=== PATIENT | female | born 1985 | race Asian ===

== ENCOUNTER 2019-11-27 10:45 | Emergency (ER) | payer BC, OTHER ==
[2019-11-27 10:50] VITALS: BP 125/92; PULSE 100; TEMP 98.7; BMI 29.0
[2019-11-27] MEDS ORDERED: KETOROLAC TROMETHAMINE 60 MG/2 ML VIAL IM ONE (10:53)
[2019-11-27] MEDS ORDERED: KETOROLAC TROMETHAMINE 60 MG/2 ML VIAL ONE (11:00)
[2019-11-27] MEDS ORDERED: SODIUM CHLORIDE 1,000 ML IV STA (11:15)
[2019-11-27] MEDS ORDERED: METOCLOPRAMIDE HCL INJECTION 10 MG/2 ML VIAL IVPUSH ONE (11:15)
[2019-11-27] MEDS ORDERED: METOCLOPRAMIDE HCL INJECTION 10 MG/2 ML VIAL ONE (11:18)
== END 2019-11-27 13:00 | disposition home or self-care (01) ==
LOC: JER 10:45
PROC: 3E023GC Introduction of Other Therapeutic Substance into Muscle, Percutaneous Approach (ICD-10-PCS; principal; 2019-11-27)
PROC: 3E033GC Introduction of Other Therapeutic Substance into Peripheral Vein, Percutaneous Approach (ICD-10-PCS; principal; 2019-11-27)
PROC: 3E0337Z Introduction of Electrolytic and Water Balance Substance into Peripheral Vein, Percutaneous Approach (ICD-10-PCS; principal; 2019-11-27)
DX: R51 Headache (principal)
CPT/HCPCS: 70450-TC; 99285-25